=== PATIENT | male | born 2000 | race African-American/Black ===

== ENCOUNTER 2023-10-11 12:50 | Emergency (ER) | payer OTHER ==
[~2023-10-11] VITALS: Ht 198.1 cm; Wt 144.5 kg
[2023-10-11] MEDS: traMADol 50 MG TAB PO ONE (15:45)
[2023-10-11 16:34] VITALS: BP 132/60; TEMP 97.8; O2SAT 99
[2023-10-11] MEDS ORDERED: CEPH500C PO (18:43)
[2023-10-11] MEDS ORDERED: NAPR-837 PO (18:43)
[2023-10-11] MEDS: CEPHALEXIN 500 MG CAP PO ONE (19:04)
== END 2023-10-11 19:09 | disposition home or self-care (01) ==
LOC: M ED 12:50
DX: S90.852A Superficial foreign body, left foot, initial encounter (principal); W26.8XXA Contact with other sharp object(s), not elsewhere classified, initial encounter; F12.10 Cannabis abuse, uncomplicated; Z79.2 Long term (current) use of antibiotics; Z79.899 Other long term (current) drug therapy; Y92.009 Unspecified place in unspecified non-institutional (private) residence as the place of occurrence of the external cause; Y93.89 Activity, other specified; Y99.9 Unspecified external cause status